=== PATIENT | male | born 1995 | race Caucasian/White ===

== ENCOUNTER 2024-08-15 22:13 | Emergency (ER) | payer BC, OTHER ==
[~2024-08-15] VITALS: Ht 167.6 cm; Wt 150.0 kg
[2024-08-15 22:26] VITALS: BP 138/86; PULSE 71; RESP 18; TEMP 98.4; O2SAT 100
[2024-08-15] MEDS: LIDOCAINE 1%/EPI 1:200,000/PF 10 ML VIAL SQ ONE (23:28)
[2024-08-15] MEDS: PERTUSS(ACELL),DIPH,TET/PF 0.5 ML SYRINGE [ADULT] IM. ONE (23:28)
[2024-08-15] MEDS: ACETAMINOPHEN 500 MG TABLET PO ONE (23:28)
[2024-08-15] MEDS: BACITRACIN 0.9 GM PACKET OINTMENT TP ONE (23:29)
== END 2024-08-16 00:32 | disposition home or self-care (01) ==
LOC: EMS 23:16
DX: S61.411A Laceration without foreign body of right hand, initial encounter (principal); Z98.890 Other specified postprocedural states; W25.XXXA Contact with sharp glass, initial encounter; Y93.89 Activity, other specified; Y92.89 Other specified places as the place of occurrence of the external cause; Y99.8 Other external cause status
CPT/HCPCS: 99283; 73130; 90715; 90471; 12002; J3490